=== PATIENT | male | born 1955 | race American Indian/Alaskan Native ===

== ENCOUNTER 2019-05-23 09:12 | Emergency (ER) | payer OTHER ==
[2019-05-23] MEDS ORDERED: Alum Hydrox/Mag Hydrox/Simeth 30 ML, Lidocaine 2% 15 ML PO ONE ×2 (09:33)
[2019-05-23] MEDS ORDERED: HYDROmorphone 1 MG/ML Syringe IVPUSH ONE (09:47)
[2019-05-23] MEDS ORDERED: Pantoprazole 40 MG Vial IVPUSH ONE (09:48)
[2019-05-23] MEDS ORDERED: Aluminum Hydroxide/Magnesium Hydroxide/Simethicone Susp 30 ML Cup PO ONE (10:46)
--- NOTE | 2019-05-23 10:47 | EDM.PDOC ---
ED HPI GENERAL MEDICAL PROBLEM - General Chief Complaint: Abdominal Pain Stated Complaint: CHEST PAIN AND STOMACH PAIN Time Seen by Provider: 05/23/19 09:32 Source of Information: Reports: Patient History Limitations: Reports: No Limitations - History of Present Illness INITIAL COMMENTS - FREE TEXT/NARRATIVE: This gentleman comes in complaining of epigastric abdominal pain which is been going on for months. A few months ago he was in [place] wound up having a abdominal CT scan which showed gastric wall thickening consistent with gastritis. He then had a gallbladder ultrasound showed just a distended fluid- filled gallbladder but nothing more. He responded to a GI cocktail but then was discharged with hydrocodone. Hasn't had any treatment since then. He said that drinking chocolate milk makes the pain go away temporarily. Hasn't tried any other kind of medications. He's here today because he ran out of chocolate milk. Patient came to the hospital you know I do know why my patient came to the hospital because he ran out of chocolate milk. 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, Other Medication(s) Abdomen Pain Score (Numeric/FACES): 5 - Related Data Allergies Allergy/AdvReac Type Severity Reaction Status Date / Time No Known Allergies Allergy Verified 05/23/19 09:14 Home Meds: Home Meds NK [No Known Home Meds] 05/23/19 [History] Past Medical History - Past Health History Medical/Surgical History: Denies Medical/Surgical History - Infectious Disease History Infectious Disease History: Reports: Chicken Pox Social & Family History - Tobacco Use Smoking Status *Q: Current Every Day Smoker Years of Tobacco use: 45 Packs/Tins Daily: 0.5 - Caffeine Use Caffeine Use: Reports: Coffee, Soda, Tea - Recreational Drug Use Recreational Drug Use: Yes Drug Use in Last 12 Months: Yes Recreational Drug Type: Reports: Marijuana/Hashish Recreational Drug Use Frequency: Socially ED ROS GENERAL - Review of Systems Review Of Systems: See Below (allergies been.[facility] [employer] by the department) Constitutional: Reports: Weight Loss (go away vaginal it was no antiacids were anything but a new milk lives) HEENT: Reports: No Symptoms Respiratory: Reports: No Symptoms Cardiovascular: Reports: No Symptoms Endocrine: Reports: No Symptoms GI/Abdominal: Reports: Abdominal Pain ( so I'llwhen she ), Vomiting : Reports: No Symptoms (Said he vomits after he eats so he's losing weight) Musculoskeletal: Reports: No Symptoms Skin: Reports: No Symptoms Neurological: Reports: No Symptoms ED EXAM, GI/ABD - Physical Exam Exam: See Below Exam Limited By: No Limitations General Appearance: Alert, WD/WN, Moderate Distress Eyes: Bilateral: Normal Appearance Throat/Mouth: Normal Inspection Head: Atraumatic Neck: Normal Inspection Respiratory/Chest: No Respiratory Distress, Lungs Clear Cardiovascular: Regular Rate, Rhythm, No Murmur GI/Abdominal Exam: Normal Bowel Sounds, Soft, Other Extremities: Normal Inspection Neurological: Alert, Oriented Psychiatric: Normal Affect Skin Exam: Warm, Dry Course - Vital Signs Last Recorded V/S: Last Vital Signs Temp 36.2 C 05/23/19 09:15 Pulse 62 05/23/19 09:15 Resp 18 05/23/19 09:15 BP 124/79 05/23/19 09:15 Pulse Ox 98 05/23/19 09:15 - Orders/Labs/Meds Labs: Laboratory Tests 05/23/19 05/23/19 05/23/19 Range/Units 10:56 10:56 10:56 WBC 8.9 (4.5-11.0) K/uL RBC 4.62 (4.30-5.90) M/uL Hgb 13.4 (12.0-15.0) g/dL Hct 40.2 (40.0-54.0) % MCV 87 (80-98) fL MCH 29 (27-31) pg MCHC 33 (32-36) % Plt Count 354 (150-400) K/uL Neut % (Auto) 70 H (36-66) % Lymph % (Auto) 20 L (24-44) % [place] % (Auto) 9 H (2-6) % Eos % (Auto) 1 L (2-4) % Baso % (Auto) 0 (0-1) % Sodium 136 L (140-148) mmol/L Potassium 4.8 (3.6-5.2) mmol/L Chloride 103 (100-108) mmol/L Carbon Dioxide 29 (21-32) mmol/L Anion Gap 8.8 (5.0-14.0) mmol/L BUN 20 H (7-18) mg/dL Creatinine 1.0 (0.8-1.3) mg/dL Est Cr Clr Drug Dosing 69.68 mL/min Estimated GFR (MDRD) > 60 (>60) Glucose 95 (74-106) mg/dL Calcium 8.9 (8.5-10.1) mg/dL Total Bilirubin 0.4 (0.2-1.0) mg/dL AST 15 (15-37) U/L ALT 18 (12-78) U/L Alkaline Phosphatase 77 (46-116) U/L Total Protein 7.4 (6.4-8.2) g/dL Albumin 3.4 (3.4-5.0) g/dL Globulin 4.0 H (2.3-3.5) g/dL Albumin/Globulin Ratio 0.9 L (1.2-2.2) Amylase 77 (25-115) U/L Lipase 272 (73-393) U/L Meds: Medications Discontinued Medications Generic Name Dose Route Start Last Admin Trade Name Freq PRN Reason Stop Dose Admin Al Hydroxide/Mg Hydroxide 30 ml 05/23/19 10:46 05/23/19 10:50 Mag-Al Plus PO 05/23/19 10:47 30 ml ONETIME ONE Administration Al Hydroxide/Mg Hydroxide 30 0 ml 05/23/19 09:33 05/23/19 09:38 ml/ Lidocaine HCl 15 ml PO 05/23/19 09:34 30 ml ONETIME ONE Administration Hydromorphone HCl 1 mg 05/23/19 09:47 05/23/19 09:51 Dilaudid IVPUSH 05/23/19 09:48 1 mg ONETIME ONE Administration Pantoprazole Sodium 40 mg 05/23/19 09:48 05/23/19 09:53 Protonix Iv IVPUSH 05/23/19 09:49 40 mg ONETIME ONE Administration - Re-Assessments/Exams Free Text/Narrative Re-Assessment/Exam: 05/23/19 10:46 Initial gi cocktail didn't help myuch but was having sever pain so gave dilaudid and protonix. Better now but still some pain so will give straight maalox. 05/23/19 12:26 straight Maalox seemed to help some. Discussed with Dr. Mcmahan and he will do an EGD in the morning Departure - Departure Time of Disposition: 12:27 Disposition: Home, Self-Care 01 Condition: Fair ( dictated) Clinical Impression: Peptic ulcer disease - Discharge Information Referrals: PCP,None [Primary Care Provider] - Forms: ED Department Discharge Additional Instructions: Take omeprazole 20 mg twice daily. When this medication runs out you will need to see your Dr. if you wish to continue it. This medication is also available [id number]. Come to the hospital in the morning as instructed to have your stomach scoped ( an EGD)
== END 2019-05-23 12:55 | disposition home or self-care (01) ==
LOC: JP.ED 09:12
DX: K27.9 Peptic ulcer, site unspecified, unspecified as acute or chronic, without hemorrhage or perforation (principal); F17.210 Nicotine dependence, cigarettes, uncomplicated
CPT/HCPCS: 36415; 80053; 82150; 83690; 85025; 96374; 96375; 99285; A9270; C9113; J1170; 99284

== ENCOUNTER 2019-05-24 07:52 | Day surgery (SDC) | payer OTHER ==
[2019-05-24] MEDS ORDERED: Lactated Ringers 1,000 ML IV SCH (08:30)
[2019-05-24] MEDS ORDERED: fentaNYL 100 MCG/2 ML SDV ONE (08:46)
[2019-05-24] MEDS ORDERED: Propofol 200 MG/20 ML SDV ONE (08:46)
[2019-05-24] MEDS ORDERED: Midazolam 1 MG/ML 2 ML SDV ONE (08:46)
[2019-05-24] MEDS ORDERED: Pantoprazole 40 MG Tab.CR PO SCH (10:15)
--- NOTE | 2019-05-26 08:00 | OR ---
DATE OF PROCEDURE: 05/24/2019 SURGEON: Og Mcmahan MD PROCEDURE: EGD. FINDINGS: 1. Duodenal ulcer. 2. Inflammation at GE junction. PATHOLOGY: 1. Biopsy in proximity to duodenal ulcer for evaluation of H pylori. 2. Biopsy of GE junction for evaluation of gastroesophageal reflux disease. RISKS: Risks, benefits, alternatives, and limitations including, but not limited to infection, bleeding, and perforation were explained to the patient, who wished to proceed. PROCEDURE IN DETAIL: The patient was placed in left lateral decubitus position. The EGD scope was introduced and advanced atraumatically to second part of the duodenum. Within the duodenal bulb, there was an approximately 8 mm to 1 cm non-bleeding ulcer. This appeared to be stable. No evidence of significant inflammation and looked more chronic. The scope was brought back in the stomach. No hiatal hernia. No gastritis. At the GE junction, there was inflammation consistent with reflux disease. This was biopsied in all 4 quadrants at least 6 times. The remainder of the esophagus was normal. The patient tolerated the procedure well. Og Mcmahan MD /[id number]
== END 2019-05-24 11:53 | disposition home or self-care (01) ==
LOC: JP.SDS 07:52
PROVIDERS: ATTEND Surgery
DX: K29.80 Duodenitis without bleeding (principal); K26.9 Duodenal ulcer, unspecified as acute or chronic, without hemorrhage or perforation; K20.9 Esophagitis, unspecified; F17.200 Nicotine dependence, unspecified, uncomplicated
CPT/HCPCS: 43239; A9270; J2250; J2704; J3010; J7120; 88305; 88342

== ENCOUNTER 2020-06-29 21:22 | Emergency (ER) | payer SELFPAY ==
[2020-06-29] MEDS ORDERED: Prochlorperazine 10 MG/2 ML SDV IVPUSH ONE (21:49)
[2020-06-29] MEDS ORDERED: fentaNYL 100 MCG/2 ML SDV IVPUSH ONE (21:49)
--- NOTE | 2020-06-29 21:54 | EDM.PDOC ---
ED HPI GENERAL MEDICAL PROBLEM - General Chief Complaint: Abdominal Pain Stated Complaint: MEDICAL [facility] Time Seen by Provider: 06/29/20 21:50 Source of Information: Reports: Patient History Limitations: Reports: No Limitations - History of Present Illness INITIAL COMMENTS - FREE TEXT/NARRATIVE: 65-year-old gentleman presents emergency department a complaint of abdominal pa in, he states the abdominal pain has gotten progressively worse over the last 3 to 4days he does have nausea and vomiting unable to keep anything down today came in by EMS services they did provide pain medication of Dilaudid and Zofran while in route which did provide some relief. He denies any abdominal surgeries does use alcohol right abd pain Pain Score (Numeric/FACES): 7 - Related Data Allergies Allergy/AdvReac Type Severity Reaction Status Date / Time No Known Allergies Allergy Verified 06/29/20 21:31 Home Meds: Home Meds Pantoprazole Sodium [Protonix] 20 mg PO DAILY #30 tablet. 06/30/20 [Rx] Past Medical History HEENT History: Reports: Impaired Vision, Other (See Below) Other HEENT History: glasses Gastrointestinal History: Reports: Other (See Below) Other Gastrointestinal History: upper abdominal epigastric pain for 1yr. ulcers Neurological History: Reports: Concussion, Head Trauma - Infectious Disease History Infectious Disease History: Reports: Chicken Pox, Measles Social & Family History - Tobacco Use Tobacco Use Status *Q: Current Every Day Tobacco User Years of Tobacco use: 40 Packs/Tins Daily: 0.2 - Caffeine Use Caffeine Use: Reports: Coffee Caffeine Use Comment: 2 cups in AM - Recreational Drug Use Recreational Drug Use: Yes Drug Use in Last 12 Months: No Recreational Drug Type: Reports: Marijuana/Hashish Recreational Drug Use Frequency: Weekly ED ROS GENERAL - Review of Systems Review Of Systems: See Below Constitutional: Reports: No Symptoms Respiratory: Reports: No Symptoms Cardiovascular: Reports: No Symptoms GI/Abdominal: Reports: Abdominal Pain, Nausea, Vomiting. Denies: Flatus : Reports: No Symptoms ED EXAM, GI/ABD - Physical Exam Exam: See Below Exam Limited By: No Limitations General Appearance: Alert, WD/WN, No Apparent Distress Respiratory/Chest: No Respiratory Distress, Lungs Clear, Normal Breath Sounds, No Accessory Muscle Use, Chest Non-Tender Cardiovascular: Regular Rate, Rhythm, No Murmur GI/Abdominal Exam: Soft, Tender (Right upper quadrant) Back Exam: Normal Inspection, Full Range of Motion. No: CVA Tenderness (R), CVA Tenderness (L) Extremities: No Pedal Edema Course - Vital Signs Last Recorded V/S: Last Vital Signs Temp 99.6 F 06/29/20 21:34 Pulse 60 06/29/20 21:34 Resp 15 06/29/20 21:34 BP 138/62 06/29/20 21:34 Pulse Ox 95 06/29/20 21:34 - Orders/Labs/Meds Orders: Active Orders 24 hr Category Date Time Status Iopamidol [Isovue-300 (61%)] Med 06/29/20 22:30 Active 100 ml IV . DIRECTED Lactated Ringers [Ringers, Lactated] 1,000 ml Med 06/29/20 22:00 Active IV ASDIRECTED Sodium Chloride 0.9% [Normal Saline] 80 ml Med 06/29/20 22:30 Active IV ASDIRECTED Sodium Chloride 0.9% [Saline Flush] Med 06/29/20 22:16 Active 10 ml FLUSH ASDIRECTED PRN Medication Orders Lactated Ringer's (Ringers, Lactated) 1,000 mls @ 999 mls/hr IV ASDIRECTED [facility] Last Admin: 06/29/20 22:16 Dose: 999 mls/hr Documented by: MOODY Sodium Chloride (Normal Saline) 80 mls @ 3 mls/sec IV ASDIRECTED RUSLAN Last Admin: 06/29/20 22:43 Dose: 3 mls/sec Documented by: ARY Iopamidol (Isovue-300 (61%)) 100 ml IV . DIRECTED RUSLAN Last Admin: 06/29/20 22:43 Dose: 100 ml Documented by: ARY Sodium Chloride (Saline Flush) 10 ml FLUSH ASDIRECTED PRN PRN Reason: Keep Vein Open Last Admin: 06/29/20 22:43 Dose: 10 ml Documented by: Admin: 06/29/20 22:17 Dose: 10 ml Documented by: MOODY Labs: Laboratory Tests 06/29/20 06/29/20 06/29/20 Range/Units 22:03 22:03 22:03 WBC 11.0 (4.5-11.0) K/uL RBC 4.97 (4.30-5.90) M/uL Hgb 14.1 (12.0-15.0) g/dL Hct 43.0 (40.0-54.0) % MCV 87 (80-98) fL MCH 28 (27-31) pg MCHC 33 (32-36) % Plt Count 312 (150-400) K/uL Neut % (Auto) 78 H (36-66) % Lymph % (Auto) 13 L (24-44) % Rich % (Auto) 9 H (2-6) % Eos % (Auto) 0 L (2-4) % Baso % (Auto) 0 (0-1) % Sodium 135 L (140-148) mmol/L Potassium 4.4 (3.6-5.2) mmol/L Chloride 100 (100-108) mmol/L Carbon Dioxide 30 (21-32) mmol/L Anion Gap 9.4 (5.0-14.0) mmol/L BUN 13 (7-18) mg/dL Creatinine 1.1 (0.8-1.3) mg/dL Est Cr Clr Drug Dosing 61.74 mL/min Estimated GFR (MDRD) > 60 (>60) Glucose 111 H (74-106) mg/dL Lactic Acid 0.9 (0.4-2.0) mmol/L Calcium 9.3 (8.5-10.1) mg/dL Total Bilirubin 0.4 (0.2-1.0) mg/dL AST 15 (15-37) U/L ALT 20 (12-78) U/L Alkaline Phosphatase 75 (46-116) U/L Troponin I < 0.017 (0.000-0.056) ng/mL Total Protein 7.2 (6.4-8.2) g/dL Albumin 3.5 (3.4-5.0) g/dL Globulin 3.7 H (2.3-3.5) g/dL Albumin/Globulin Ratio 1.0 L (1.2-2.2) Lipase 102 (73-393) U/L Meds: Medications Generic Name Dose Route Start Last Admin Trade Name Freq PRN Reason Stop Dose Admin Lactated Ringer's 1,000 mls @ 999 mls/hr 06/29/20 22:00 06/29/20 22:16 Ringers, Lactated IV 999 mls/hr ASDIRECTED RUSLAN Administration Sodium Chloride 80 mls @ 3 mls/sec 06/29/20 22:30 06/29/20 22:43 Normal Saline IV 3 mls/sec ASDIRECTED RUSLAN Administration Iopamidol 100 ml 06/29/20 22:30 06/29/20 22:43 Isovue-300 (61%) IV 100 ml . DIRECTED RUSLAN Administration Sodium Chloride 10 ml 06/29/20 22:16 06/29/20 22:43 Saline Flush FLUSH 10 ml ASDIRECTED PRN Administration Keep Vein Open Discontinued Medications Generic Name Dose Route Start Last Admin Trade Name Freq PRN Reason Stop Dose Admin Fentanyl 50 mcg 06/29/20 21:49 06/29/20 22:14 Sublimaze IVPUSH 06/29/20 21:50 50 mcg ONETIME ONE Administration Pantoprazole Sodium 40 mg 06/29/20 23:21 06/29/20 23:33 Protonix Iv IVPUSH 06/29/20 23:22 40 mg ONETIME ONE Administration Prochlorperazine Edisylate 5 mg 06/29/20 21:49 06/29/20 22:12 Compazine IVPUSH 06/29/20 21:50 5 mg ONETIME ONE Administration Departure - Departure Time of Disposition: 00:33 Disposition: Home, Self-Care 01 Condition: Fair Clinical Impression: Abdominal pain Qualifiers: Abdominal location: right upper quadrant Qualified Code(s): R10.11 - Right upper quadrant pain - Discharge Information Prescriptions: Pantoprazole Sodium [Protonix] 20 mg PO DAILY #30 tablet. Instructions: Abdominal Pain, Adult Referrals: PCP,None [Primary Care Provider] - Forms: ED Department Discharge Additional Instructions: Try the Protonix 1 tablet/day recommend follow-up with your primary care in the next 3 to 5 days for reevaluation call return to the emergency department worsening of symptoms Sepsis Event Note (ED) - Evaluation Sepsis Screening Result: No Definite Risk - Focused Exam Vital Signs: Vital Signs Temp Pulse Resp BP Pulse Ox 06/29/20 21:34 99.6 F 60 15 138/62 95 06/29/20 21:33 99.6 F 60 15 138/62 95 - My Orders Last 24 Hours: My Active Orders 06/29/20 22:00 Lactated Ringers [Ringers, Lactated] 1,000 ml IV ASDIRECTED 06/29/20 22:16 Sodium Chloride 0.9% [Saline Flush] 10 ml FLUSH ASDIRECTED PRN 06/29/20 22:30 Iopamidol [Isovue-300 (61%)] 100 ml IV . DIRECTED Sodium Chloride 0.9% [Normal Saline] 80 ml IV ASDIRECTED - Assessment/Plan Last 24 Hours: My Active Orders 06/29/20 22:00 Lactated Ringers [Ringers, Lactated] 1,000 ml IV ASDIRECTED 06/29/20 22:16 Sodium Chloride 0.9% [Saline Flush] 10 ml FLUSH ASDIRECTED PRN 06/29/20 22:30 Iopamidol [Isovue-300 (61%)] 100 ml IV . DIRECTED Sodium Chloride 0.9% [Normal Saline] 80 ml IV ASDIRECTED Plan: Assessment Acuity = acute Site and laterality = right upper quadrant abdominal pain Etiology = unknown Manifestations = none Location of injury = Home Lab values = CBC, CMP, urinalysis, troponin within normal limits CT scan shows no acute process however several chronic conditions were appreciated Plan I did provide him a copy of his CT scan result he is going to bring up with his primary care provider he had good relief with some IV Protonix and was able to tolerate food plan is discharged home with Protonix 20 mg 1 tab p.o. daily total #30 follow-up primary care 3 to 5 days for reevaluation This note was dictated using [employer] voice recognition software please call with any questions on syntax or grammar.
[2020-06-29] MEDS ORDERED: Lactated Ringers 1,000 ML IV SCH (22:00)
[2020-06-29] MEDS: Sodium Chloride 0.9% 10 ML Syringe FLUSH PRN ×2 (22:17→22:43)
[2020-06-29] MEDS ORDERED: Iopamidol 612 MG/ML 100 ML Bottle IV SCH (22:30)
[2020-06-29] MEDS ORDERED: Sodium Chloride 0.9% 80 ML IV SCH (22:30)
--- NOTE | 2020-06-29 23:11 | CRLCT ---
INDICATION: Right upper quadrant pain TECHNIQUE: CT Abdomen and pelvis with i.v. contrast. Coronal and sagittal reformats were obtained. CONTRAST: 100 mL Isovue 300 COMPARISON: None FINDINGS: Lower chest: Unremarkable. Liver: Unremarkable. Spleen: Unremarkable. Pancreas: Unremarkable. Gallbladder: Unremarkable. Kidney: Small subcentimeter cortical cysts are present in both kidneys. Adrenal: Unremarkable. Bowel: Mild diverticulosis of the hepatic flexure is seen and is difficult to evaluate due to the decompressed state of the colon. There is suspected full thickening near the hepatic flexure. The appendix is normal in appearance and size. Vascular: Unremarkable. Lymph: Unremarkable. Peritoneum: Unremarkable. No pneumoperitoneum is seen. No significant ascites is noted. Pelvis: Moderate enlargement of the prostate gland is noted. Mild diffuse bladder wall thickening is noted. Soft tissue: Unremarkable. Bone: Unremarkable for age. IMPRESSIONS: 1. Moderate enlargement of the prostate gland is noted. Correlation with physical examination and PSA levels are recommended. 2. Mild diffuse bladder wall thickening is noted. This may be due to chronic bladder outlet obstruction,urinary tract infection or cystitis. 3. There is suspected full thickening near the hepatic flexure. Clinical correlation is recommended to exclude mild colitis. Dictated by Tu Aguilar MD @ 06/29/2020 11:09:32 PM Please note that all CT scans at this facility use dose modulation, iterative reconstruction, and/or weight-based dosing when appropriate to reduce radiation dose to as low as reasonably achievable. Dictated by: Tu Aguilar MD @ 06/29/2020 23:09:37 (Electronically Signed)
[2020-06-29] MEDS ORDERED: Pantoprazole 40 MG Vial IVPUSH ONE (23:21)
== END 2020-06-30 00:50 | disposition home or self-care (01) ==
LOC: JP.ED 21:22
DX: R10.11 Right upper quadrant pain (principal); F17.210 Nicotine dependence, cigarettes, uncomplicated
CPT/HCPCS: 36415; 74177; 80053; 83605; 83690; 84484; 85025; 96374; 96375; 99285; C9113; J0780; J3010; J7120; Q9967